=== PATIENT | female | born 1975 | race Caucasian/White ===

== ENCOUNTER 2022-06-08 07:00 | Outpatient (CLI) | payer OTHER, SELFPAY ==
[2022-06-08 07:20] LABS: Basophils Absolute Auto 0.03 K/mm3 (0.00-0.10); Basophils Percent Auto 0.4 % (0.0-1.0); Eosinophils Absolute Auto 0.27 K/mm3 (0.02-0.50); Eosinophils Percent Auto 3.2 % (1.0-6.0); Hematocrit 42.2 % (35.0-49.0); Hemoglobin 14.2 g/dL (12.0-15.0); Immature Granulocyte Absolute 0.04 K/mm3 (0.00-0.00); Immature Granulocyte Percent A 0.5 % (0.0-0.0); Lymphocytes Absolute Auto 3.04 K/mm3 (1.10-4.50); Lymphocytes Percent Auto 36.1 % (18.0-42.0); Mean Corpuscular HGB Conc 33.6 g/dL (32.0-36.0); Mean Corpuscular Hemoglobin 30.5 pg (27.0-31.0); Mean Corpuscular Volume 90.6 fL (78.0-102.0); Mean Platelet Volume 9.4 fl (9.2-11.8); Monocytes Absolute Auto 0.51 K/mm3 (0.10-0.90); Neutrophils Absolute Auto 4.5 K/mm3 (1.7-7.2); Neutrophils Percent Auto 53.8 % (50.0-70.0); Platelet Count Result 192 K/mm3 (150-420); Red Blood Count 4.66 M/mm3 (4.20-5.40); Red Cell Distribution Width 13.2 % (11.6-14.4); White Blood Count 8.4 K/mm3 (4.8-10.8)
[2022-06-08 07:31] LABS: Hemoglobin A1C 5.3 % (<5.7)
[2022-06-08 08:15] LABS: Alanine Aminotransferase 28 U/L (14-59); Albumin Level 3.8 g/dL (3.4-5.0); Alkaline Phosphatase 73 U/L (46-116); Anion Gap 10 mmol/L (8-16); Aspartate Amino Transferase 14 U/L (15-37); Bilirubin,Total 0.6 mg/dL (0.00-1.00); Blood Urea Nitrogen 12 mg/dL (7-18); Calcium 8.8 mg/dL (8.5-10.1); Carbon Dioxide 25 mmol/L (21-32); Chloride 108 mmol/L (98-108); Estimated Glomerular Filt Rate > 60; Free T3 3.05 pg/mL (2.18-3.98); Free T4 Free Thyroxine 1.26 ng/dL (0.76-1.46); Glucose 116 mg/dL (70-99); Osmolality Calculated 296 mOsm/kg (285-295); Potassium 4.1 mmol/L (3.5-5.1); Sodium 143 mmol/L (136-145); Thyroid Stimulating Hormone 1.49 uIU/mL (0.36-3.74); Total Protein 7.1 g/dL (6.4-8.2); Vitamin B12 202 pg/mL (193-986)
[2022-06-11 04:53] LABS: DHEA-Sulfate 72 mcg/dL (19-231); Insulin Level Total 5.7 uIU/mL (<=19.6); Sex Hormone Binding Globulin 21 nmol/L (17-124); Thyroglobulin 20.2 ng/mL (2.8-40.9); Thyroglobulin Antibodies <1 IU/mL (<=1); Thyroid Peroxidase Antibodies <1 IU/mL (<9)
[2022-06-11 20:17] LABS: T4 Thyroxine 9.8 mcg/dL (5.1-11.9)
[2022-06-12 15:05] LABS: T3 Reverse 19 ng/dL (8-25)
[2022-06-12 16:37] LABS: Testosterone Free 3.5 pg/mL (0.1-6.4); Testosterone Total 28 ng/dL (2-45)
[2022-06-12 21:18] LABS: Cortisol Random 5.6 mcg/dL (***); FSH 27.5 mIU/mL (***); LH 11.1 mIU/mL (***); Progesterone 0.4 ng/mL (***); Prolactin 6.9 ng/mL (***)
[2022-06-13 19:17] LABS: Vitamin D 25 Hydroxy 17 ng/mL (30-100)
[2022-06-14 04:52] LABS: Total Triiodothyronine (T3) 116.4 ng/dL (76-181)
[2022-06-17 00:42] LABS: Estradiol, Ultrasensitive 19 pg/mL
== END 2022-06-08 07:01 | disposition home or self-care (01) ==
LOC: CHSLAB 07:03
PROVIDERS: Visit Provider Chiropractor
DX: Z00.01 Encounter for general adult medical examination with abnormal findings (principal); E56.8 Deficiency of other vitamins; N95.1 Menopausal and female climacteric states; R53.83 Other fatigue; E53.8 Deficiency of other specified B group vitamins
CPT/HCPCS: 36415; 80053; 82306; 82533; 82607; 82627; 82670; 83001; 83002; 83036; 83525; 84144; 84146; 84270; 84402; 84403; 84432; 84436; 84439; 84443; 84480; 84481; 84482; 85025; 86376; 86800

== ENCOUNTER 2022-10-26 13:52 | Outpatient (CLI) | payer OTHER, SELFPAY ==
[2022-10-29 03:06] LABS: FSH 7.1 mIU/mL (***); Progesterone 1.6 ng/mL (***)
[2022-10-30 03:36] LABS: Sex Hormone Binding Globulin 41 nmol/L (17-124)
[2022-10-31 18:06] LABS: Testosterone Free 8.4 pg/mL (0.1-6.4); Testosterone Total 67 ng/dL (2-45)
[2022-11-02 21:52] LABS: Estradiol, Ultrasensitive 210 pg/mL
== END 2022-10-26 13:53 | disposition home or self-care (01) ==
LOC: CHSLAB 13:54
PROVIDERS: PCP Chiropractor; Visit Provider Chiropractor
DX: N95.1 Menopausal and female climacteric states (principal)
CPT/HCPCS: 36415; 82670; 83001; 84144; 84270; 84402; 84403

== ENCOUNTER 2023-02-10 16:31 | Emergency (ER) | payer OTHER, SELFPAY ==
[2023-02-10 16:33] VITALS: BP 172/82; PULSE 82; RESP 18; TEMP 36.4; O2SAT 98
--- NOTE | 2023-02-10 16:47 | ED.URI ---
HPI - URI/Sore Throat General Chief Complaint: Upper Respiratory Infection Stated Complaint: Sore Throat/Ear pain Time Seen by Provider: 02/10/23 16:41 Source: patient Mode of arrival: ambulatory Limitations: no limitations History of Present Illness HPI Narrative: this is a 47-year-old female that presents with some muffled ear sensation with pressure in the left ear greater than the right, with some nasal congestion with postnasal drip and sore throat with mild tender maxillary and frontal sinus pressure with palpation no fever chills no shortness of breath no audible wheezing. MD elicited complaint: sore throat, nasal congestion, sinus pain and other ( left ear muffled and pressure like pain) Related Data Home Medications Medication Instructions Recorded Confirmed calcium carbonate 600 mg calcium 600 mg PO DAILY 03/07/21 02/10/23 (1,500 mg) tablet loratadine 10 mg tablet (Claritin) 10 mg PO DAILY 03/07/21 02/10/23 magnesium 200 mg tablet 200 mg PO DAILY 03/07/21 02/10/23 multivitamin (Daily Multi-Vitamin 1 tablet PO DAILY 03/07/21 02/10/23 tablet) Allergies Allergy/AdvReac Type Severity Reaction Status Date / Time No Known Allergies Allergy Verified 02/10/23 16:50 Review of Systems Review of Systems: All systems reviewed & are unremarkable except as noted in HPI and below PMFSH Past Medical History Medical History History of vaginal delivery x 2 Surgical History Surgical History History of hysterectomy 2015. [place] teeth removed x 2 Family History Family History Father Alcoholism Mother Heart disease Grandparent Carcinoma of colon Diabetes mellitus Alcoholism Social History Social History Smoking status: Light tobacco smoker Tobacco type: cigarettes Alcohol intake: current Substance use: never Living arrangements: with family Exam Const: General: healthy appearing Nutritional Appearance: well nourished Orientation/consciousness: patient oriented x3 Limitations: no limitations HENMT: Head: normal to inspection Ears: TM abnormal Face/Nose/Sinus: Normal external nose present Face and sinus: sinus tenderness Mouth: Yes Normal oral and palatal mucosa present Teeth and gingiva: dentition normal Eyes: Conjunctivae: conjunctivae normal EOM: EOMs intact bilaterally Neck: Neck: normal visual inspection Chest: Chest palpation & inspection: normal inspection of the chest Resp: Effort & Inspection: normal respiratory effort Auscultation: clear to auscultation bilaterally Cardio: Rate: regular rate Rhythm: regular rhythm GI: GI Palp: Yes Soft to palpation : General: Yes bladder normal to palpation Urinary Catheter: Urinary Catheter: patent and draining Back/Spine/Pelvis: Back: no CVA tenderness Skin: General skin exam: normal color Neuro: General: patient oriented x3 and moves all extremities Extrem: General: normal to inspection and no clubbing, cyanosis or edema Psych: Mental Status: mental status grossly normal Affect: normal affect Attitude: cooperative Course Course Emergency Course: Strep reviewed with patient, otherwise appears sinus related advised to continue antihistamine decongestant. Vital Signs Vital signs: Vital Signs Temperature 36.4 C L 02/10/23 16:33 Pulse Rate 82 02/10/23 16:33 Respiratory Rate 18 02/10/23 16:33 Blood Pressure 172/82 H 02/10/23 16:33 Pulse Oximetry 98 02/10/23 16:33 Oxygen Delivery Room Air 02/10/23 16:33 Temperature 36.4 C L 02/10/23 16:33 Pulse Rate 82 02/10/23 16:33 Respiratory Rate 18 02/10/23 16:33 Blood Pressure 172/82 H 02/10/23 16:33 Pulse Oximetry 98 02/10/23 16:33 Oxygen Delivery Room Air 02/10/23 16:33 Critical Care Time Crit
[2023-02-10 17:23] LABS: Strep Group A RT-PCR NOT DETECTED (Negative)
[2023-02-10 17:30] VITALS: BP 168/74; PULSE 84; RESP 18; TEMP 36.6; O2SAT 99
== END 2023-02-10 17:35 | disposition home or self-care (01) ==
PROVIDERS: Emergency Provider Emergency Medicine; PCP Family Medicine
DX: J01.10 Acute frontal sinusitis, unspecified (principal); F17.210 Nicotine dependence, cigarettes, uncomplicated
CPT/HCPCS: 87651; 99283

== ENCOUNTER 2023-02-15 16:28 | Outpatient (CLI) | payer OTHER, SELFPAY ==
[2023-02-18 16:32] LABS: FSH 13.4 mIU/mL (***); Progesterone 2.7 ng/mL (***)
[2023-02-19 15:12] LABS: Testosterone Free 9.9 pg/mL (0.1-6.4); Testosterone Total 94 ng/dL (2-45)
[2023-02-20 12:31] LABS: Sex Hormone Binding Globulin 49 nmol/L (17-124)
[2023-02-22 21:41] LABS: Estradiol, Ultrasensitive 124 pg/mL
== END 2023-02-15 16:29 | disposition home or self-care (01) ==
PROVIDERS: PCP Chiropractor; Visit Provider Chiropractor
DX: N95.1 Menopausal and female climacteric states (principal)
CPT/HCPCS: 36415; 82670; 83001; 84144; 84270; 84402; 84403

== ENCOUNTER 2023-06-06 10:32 | Outpatient (CLI) | payer OTHER, SELFPAY ==
[2023-06-09 12:18] LABS: Sex Hormone Binding Globulin 41 nmol/L (17-124)
[2023-06-10 05:26] LABS: FSH 14.3 mIU/mL (***)
[2023-06-10 14:17] LABS: Testosterone Free 8.8 pg/mL (0.1-6.4); Testosterone Total 65 ng/dL (2-45)
[2023-06-13 21:21] LABS: Estradiol, Ultrasensitive 62 pg/mL
== END 2023-06-06 10:33 | disposition home or self-care (01) ==
LOC: CHSLAB 10:35
PROVIDERS: PCP Chiropractor; Visit Provider Chiropractor
DX: N95.1 Menopausal and female climacteric states (principal)
CPT/HCPCS: 36415; 82670; 83001; 84144; 84270; 84402; 84403

== ENCOUNTER 2023-10-11 15:59 | Outpatient (CLI) | payer OTHER, SELFPAY ==
[2023-10-15 19:41] LABS: Sex Hormone Binding Globulin 41 nmol/L (17-124)
[2023-10-16 11:46] LABS: Testosterone Free 5.7 pg/mL (0.1-6.4); Testosterone Total 51 ng/dL (2-45)
[2023-10-17 07:03] LABS: FSH 5.6 mIU/mL (***); Progesterone 6.4 ng/mL (***)
[2023-10-17 19:41] LABS: Estradiol, Ultrasensitive 139 pg/mL
== END 2023-10-11 16:00 | disposition home or self-care (01) ==
PROVIDERS: Visit Provider Chiropractor
DX: N95.1 Menopausal and female climacteric states (principal); N95.8 Other specified menopausal and perimenopausal disorders
CPT/HCPCS: 36415; 82670; 83001; 84144; 84270; 84402; 84403

== ENCOUNTER 2024-02-15 14:24 | Outpatient (CLI) | payer OTHER, SELFPAY ==
[2024-02-18 12:08] LABS: Sex Hormone Binding Globulin 48 nmol/L (17-124)
[2024-02-20 13:08] LABS: FSH 12.4 mIU/mL (***); Progesterone 2.7 ng/mL (***)
[2024-02-20 21:33] LABS: Testosterone Free 3.9 pg/mL (0.1-6.4); Testosterone Total 37 ng/dL (2-45)
[2024-02-22 00:05] LABS: Estradiol, Ultrasensitive 70 pg/mL
== END 2024-02-15 14:25 | disposition home or self-care (01) ==
LOC: CHSLAB 14:25
PROVIDERS: Visit Provider Chiropractor
DX: N95.1 Menopausal and female climacteric states (principal)
CPT/HCPCS: 36415; 82670; 83001; 84144; 84270; 84402; 84403

== ENCOUNTER 2024-06-07 12:27 | Outpatient (CLI) | payer OTHER, SELFPAY ==
[2024-06-10 03:04] LABS: FSH 5.9 mIU/mL; Progesterone 11.6 ng/mL
[2024-06-15 02:09] LABS: Estradiol, Ultrasensitive 71 pg/mL
[2024-06-17 20:58] LABS: Sex Hormone Binding Globulin 55 nmol/L (17-124)
[2024-06-21 13:08] LABS: Testosterone Free 5.7 pg/mL (0.1-6.4); Testosterone Total 46 ng/dL (2-45)
== END 2024-06-07 12:28 | disposition home or self-care (01) ==
PROVIDERS: Visit Provider Chiropractor
DX: N95.1 Menopausal and female climacteric states (principal); N95.8 Other specified menopausal and perimenopausal disorders
CPT/HCPCS: 36415; 82670; 83001; 84144; 84270; 84402; 84403

== ENCOUNTER 2025-10-16 15:49 | Outpatient (CLI) | payer OTHER, SELFPAY ==
[2025-10-18 05:37] LABS: FSH 3.8 mIU/mL (.)
== END 2025-10-16 15:50 | disposition home or self-care (01) ==
LOC: CHSLAB 15:52
PROVIDERS: Visit Provider Chiropractor
DX: N95.1 Menopausal and female climacteric states (principal); N95.8 Other specified menopausal and perimenopausal disorders
CPT/HCPCS: 83001; 84144; 84270